=== PATIENT | female | born 1955 | race Caucasian/White ===

== ENCOUNTER 2022-01-11 10:08 | Emergency (ER) | payer MEDICARE ==
[~2022-01-11] VITALS: Ht 165.1 cm; Wt 71.2 kg
== END 2022-01-11 14:30 | disposition home or self-care (01) ==
LOC: ED 10:08
DX: M62.82 Rhabdomyolysis (principal); G35 Multiple sclerosis
CPT/HCPCS: 36415; 74177; 80053; 81001; 82553; 85025; 99284-25; J7030

== ENCOUNTER 2023-01-07 09:36 | Emergency (ER) | payer MEDICARE ==
[~2023-01-07] VITALS: Ht 165.1 cm; Wt 75.7 kg
[2023-01-07] MEDS ORDERED: TRAZODONE HCL50 MG PO (09:54)
[2023-01-07] MEDS ORDERED: CITALOPRAM HBR20 MG PO (09:54)
[2023-01-07] MEDS ORDERED: CYCLOSPORINE1 EACH OD (09:55)
== END 2023-01-07 11:00 | disposition home or self-care (01) ==
LOC: ED 09:36
DX: R10.12 Left upper quadrant pain (principal); R10.32 Left lower quadrant pain; G35 Multiple sclerosis; Z79.899 Other long term (current) drug therapy
CPT/HCPCS: 36415; 80053; 81003; 83690; 85025; 99284